=== PATIENT | male | born 1950 | race Caucasian/White ===

== ENCOUNTER 2021-10-02 08:49 | Outpatient (CLI) | payer MEDICARE, BC, SELFPAY ==
[2021-10-02 09:52] LABS: Anion Gap 5 mmol/L (8-16); Blood Urea Nitrogen 15 mg/dL (9-20); Calcium 9.2 mg/dL (8.4-10.2); Carbon Dioxide 27 mmol/L (22-30); Chloride 107 mmol/L (98-107); Estimated Glomerular Filt Rate > 60; Glucose 133 mg/dL (65-110); Potassium 3.6 mmol/L (3.4-5.0); Sodium 139 mmol/L (137-145)
== END 2021-10-02 08:50 | disposition home or self-care (01) ==
LOC: ANHSURGERY 08:53
PROVIDERS: Anesthesiology; PCP Family Medicine; Visit Provider Orthopaedic Surgery
DX: Z01.818 Encounter for other preprocedural examination (principal); E11.9 Type 2 diabetes mellitus without complications
CPT/HCPCS: 36415; 80048

== ENCOUNTER 2021-10-09 00:36 | Day surgery (SDC) | payer MEDICARE, BC, SELFPAY ==
--- NOTE | 2021-10-01 12:11 | PC.NURSE ---
Addendum entered by Oneida Long RN 10/01/21 13:48: ALSO TAKE METOPROLOL MORNING OF SURGERY Addendum entered by Oneida Long RN 10/01/21 12:21: SURGERY DATE IS 10/09/21 Addendum entered by Oneida Long RN 10/01/21 12:19: PLEASE ARRIVE AT [id number] SURGERY IS AT 0730 Original Note: Report to the Outpatient Waiting Room, entrance under the green pavilion located off [facility], at time on date . OR Time: . - You and your visitor will be asked a series of questions to screen for COVID 19 for your protection. - A mask is required within the hospital. Preoperative COVID Testing Requirements: No COVID Test needed if: (proof is required; if not received patient will have Rapid Test prior to entry) - Patient has received COVID Vaccine at least 14 days prior to procedure date or - Patient has positive COVID test result within last 90 days of surgery date. COVID Test needed if above criteria is not met If not COVID vaccinated a COVID test must be conducted within 72 hours of surgery and patient is asked to isolate self from time of testing until procedure. You will go to the [facility] Site for your COVID testing. The [facility] Testing site is located at the corner of [address] [facility]. You will only be called if COVID results are positive and your surgeon may reschedule your elective surgery date. Patients may have clear liquids (water, carbonated beverages, clear teas, apple juice) until 3 hours prior to surgery with a maximum of 20 ounces. - No food from midnight until time of surgery - Infants may have breast milk until 4 hours before surgery, formula 6 hours prior to surgery. - Children will be allowed to drink immediately following surgery. If applicable, please bring a bottle or sippy cup to assist with drinking. Juice, water, soda, and popsicles are readily available. For infants on formula, please bring formula the day of surgery. Pacifiers are allowed. Take the following medications with a SIP of water the morning of surgery: ___LEVOTHYROXINE,PREDNISOLONE Medications to discontinue per physician ___ALL VITAMINS AND SUPPLEMENTS 3 DAYS PREOP , PER DR LAINA COLLIER 2 DAYS PRE OP Date to take last dose__ALL VIT.10/05/21 AND XARELTO 10/06/21 Please no make-up, nail jordanian, hairspray, perfume, deodorant, or body powder the day of surgery. No jewelry (including any body piercings) or valuables the day of surgery, leave them at home. Please take a shower or bath the night before, or the morning of, surgery with an antibacterial soap. Wear comfortable, loose fitting clothing. Children are encouraged to wear pajamas. - Jewelry must be removed prior to entering the operating room. Rings and piercings that are not removed may be cut off. - The hospital will not accept responsibility for valuables. - Please leave all valuables, including medications, at home the day of surgery. If you are going home after surgery, a licensed cdl a driver must drive you home. - NO public transportation without another adult. - We recommend that an adult stay with you for 24 hours following discharge. - We also recommend that you do not drive, make important decision, drink alcoholic beverages, or take any drugs that were not prescribed by your health care provider for at least 24 hours after your discharge time. For Pediatric surgeries, we recommend two adults accompany the child home (only one inside the building at this time). One visitor will be allowed to accompany the patient into the hospital. Patients visitor will be instructed to remain with patient at all times or leave the building. We will allow the visitor to come back to the postoperative area when patient is ready. Follow any additional instructions given to you from your surgeon. Telephone instructions given to __PATIENT
[2021-10-01 12:23] VITALS: BMI 25.0
[2021-10-09] VITALS (8 sets, daily range): BP systolic 98–130; BP diastolic 59–75; PULSE 48–84; RESP 12–16; TEMP 36.2; O2SAT 95–100
[2021-10-09] MEDS: ACETAMINOPHEN 500 MG TABLET 1000 MG PO (06:22)
--- NOTE | 2021-10-09 06:41 | WPDANESEPPF ---
Anes - Initial Pre Proc Eval Procedure: Operation Date: 10/09/21 07:30 Proposed Procedures p Right Shoulder Arthroscopy with Possible Biceps Tenotomy - Chencho Bradley MD Date/Time: 10/09/21 06:41 Surgeon: Chencho Bradley MD Pre Op Diagnosis: right shoulder pain Patient Data Age: 71 Gender: M Height: 1.91 m Weight: 90.75 kg Last Vital Signs Temp 36.2 C L 10/09/21 06:28 Pulse 84 10/09/21 06:28 Resp 16 10/09/21 06:28 BP 130/75 10/09/21 06:28 Pulse Ox 97 10/09/21 06:28 Allergies Allergy/AdvReac Type Severity Reaction Status Date / Time adhesive tape AdvReac Mild Blister Verified 10/09/21 06:03 Home Medications Medication Instructions Recorded Confirmed Type acyclovir 200 mg PO BID 07/07/19 10/09/21 History azathioprine 50 mg PO QPM 07/07/19 10/09/21 History cholecalciferol (vitamin D3) 25 mcg PO DAILY 07/07/19 10/09/21 History cyanocobalamin (vitamin B-12) 500 mcg PO DAILY 07/07/19 10/09/21 History doxazosin 4 mg PO HS 07/07/19 10/09/21 History folic acid 0.8 mg PO QPM 07/07/19 10/09/21 History losartan 100 mg PO HS 07/07/19 10/09/21 History metformin 500 mg PO BID 07/07/19 10/09/21 History multivitamin 1 tablet PO DAILY 07/07/19 10/09/21 History prednisolone 5 mg PO DAILY 07/07/19 10/09/21 History rivaroxaban [Xarelto] 20 mg PO QPM 07/07/19 10/09/21 History vit B6-mag cit,oxid-potass cit 1 tablet PO QPM 07/07/19 10/09/21 History atorvastatin 40 mg PO HS 10/01/21 10/09/21 History dapagliflozin [Farxiga] 5 mg PO DAILY 10/01/21 10/09/21 History levothyroxine 150 mcg PO DAILY 10/01/21 10/09/21 History metoprolol succinate 200 mg PO QAM 10/01/21 10/09/21 History Patient hx anesthesia problems: post op nausea/vomiting Family hx anesthesia problems: none Results Review: All pre-operative results and documents have been reviewed as part of the pre-operative evaluation. [facility] [place] Past Medical History Medical History Arthritis of ankle, left, degenerative Atrial fibrillation HX CARDIAC ABLATION, DENIES CARDIAC SYMPTOMS Diabetes History of intraoperative complication of surgical procedure Aspiration HTN (hypertension) Hypercholesterolemia Hypothyroidism GEETHA (obstructive sleep apnea) NO CPAP Overweight (BMI 25.0-29.9) Surgical History Surgical History History of ankle surgery [address] Kaiser History of arthroscopy of left knee 2019, Dr. Kaiser History of eye surgery 2012 Dr. Espinosa History of prior ablation treatment 2017 Sr. Ramírez History of repair of left rotator cuff 2018 Dr. Kaiser Kidney transplant recipient Family History Family History Other Breast cancer Carcinoma of colon Diabetes mellitus History of throat cancer Hypertension Social History Social History Smoking packs per day: 1 Smoking cigarettes per day: 20.0 Years smoked: 3 Smoking pack-years: 3.00 Smoking status: Former smoker Tobacco type: cigarettes Smoking end date: 06/30/71 Alcohol intake: never Substance use: never Living arrangements: with family Gender identity (if verbalized by the patient): Male Spiritual care concerns: No Anes - Eval Final PreProcedure Day of Procedure 10/09/21 06:41 Patient weight: normal Heart: regular rate and rhythm Lungs: clear to auscultation Airway: Mallampati scale class II Neurological: alert and oriented Last oral intake: >/= 8 hours ASA classification: III Emergent: no Anesthetic plan: proceed Anesthesia type and monitoring: general ETT and standard monitoring Results Review: All pre-operative results and documents have been reviewed as part of the pre-operative evaluation. Informed Consent: The patient's anesthetic plan and its attendant risks and benefits were discussed with the patient/family/POA. Que
[2021-10-09 06:56] LABS: Glucose Point of Care 108 mg/dl (65-105)
[2021-10-09] MEDS: LACTATED RINGERS 1,000 ML 30 ML IV CONT ×2 (07:02→09:27)
--- NOTE | 2021-10-09 07:08 | ECG_ITS ---
Measurements Intervals [place] Rate: 58 P: 83 DE: 237 QRS: -31 QRSD: 95 T: 69 QT: 401 QTc: 395 Interpretive Statements SINUS BRADYCARDIA WITH FIRST DEGREE AV BLOCK LEFTWARD AXIS Electronically Signed On 10-09-2021 9:03:47 CDT by Chriss Gtz M.D.
--- NOTE | 2021-10-09 07:47 | WPDHPUPDATE1 ---
History and Physical Update Update Date/Time: 10/09/21 07:47 History and Physical has been reviewed, including an updated exam of the patient. There are NO changes in the patient's condition. Risks, benefits, and alternatives have been discussed and questions answered. Patient agrees to proceed with procedure. Plan for Right Shoulder Arthroscopy.
--- NOTE | 2021-10-09 07:48 | PM.IMHP ---
H&P: HPI History of Present Illness Date/Time: 10/09/21 07:48 Chief Complaint: Right shoulder pain PMFSH Past Medical History Medical History Arthritis of ankle, left, degenerative Atrial fibrillation HX CARDIAC ABLATION, DENIES CARDIAC SYMPTOMS Diabetes History of intraoperative complication of surgical procedure Aspiration HTN (hypertension) Hypercholesterolemia Hypothyroidism GEETHA (obstructive sleep apnea) NO CPAP Overweight (BMI 25.0-29.9) Surgical History Surgical History History of ankle surgery [address] Kaiser History of arthroscopy of left knee 2019, Dr. Kaiser History of eye surgery 2012 Dr. Espinosa History of prior ablation treatment 2017 Sr. Ramírez History of repair of left rotator cuff 2018 Dr. Kaiser Kidney transplant recipient Family History Family History Other Breast cancer Carcinoma of colon Diabetes mellitus History of throat cancer Hypertension Social History Social History Smoking packs per day: 1 Smoking cigarettes per day: 20.0 Years smoked: 3 Smoking pack-years: 3.00 Smoking status: Former smoker Tobacco type: cigarettes Smoking end date: 06/30/71 Alcohol intake: never Substance use: never Living arrangements: with family Gender identity (if verbalized by the patient): Male Spiritual care concerns: No Meds Home Medications and Allergies Home Medications Medication Instructions Recorded Confirmed Type acyclovir 200 mg PO BID 07/07/19 10/09/21 History azathioprine 50 mg PO QPM 07/07/19 10/09/21 History cholecalciferol (vitamin D3) 25 mcg PO DAILY 07/07/19 10/09/21 History cyanocobalamin (vitamin B-12) 500 mcg PO DAILY 07/07/19 10/09/21 History doxazosin 4 mg PO HS 07/07/19 10/09/21 History folic acid 0.8 mg PO QPM 07/07/19 10/09/21 History losartan 100 mg PO HS 07/07/19 10/09/21 History metformin 500 mg PO BID 07/07/19 10/09/21 History multivitamin 1 tablet PO DAILY 07/07/19 10/09/21 History prednisolone 5 mg PO DAILY 07/07/19 10/09/21 History rivaroxaban [Xarelto] 20 mg PO QPM 07/07/19 10/09/21 History vit B6-mag cit,oxid-potass cit 1 tablet PO QPM 07/07/19 10/09/21 History atorvastatin 40 mg PO HS 10/01/21 10/09/21 History dapagliflozin [Farxiga] 5 mg PO DAILY 10/01/21 10/09/21 History levothyroxine 150 mcg PO DAILY 10/01/21 10/09/21 History metoprolol succinate 200 mg PO QAM 10/01/21 10/09/21 History Allergies Allergy/AdvReac Type Severity Reaction Status Date / Time adhesive tape AdvReac Mild Blister Verified 10/09/21 06:03 Vital Signs Vital Signs - 24 hr 10/09/21 06:28 Temperature 36.2 C L Pulse Rate 84 Respiratory Rate 16 Blood Pressure 130/75 Pulse Oximetry 97 Exam HENMT: Head: normal to inspection Assessment and Plan Additional Plan Right shoulder pain, plan for arthroscopy
--- NOTE | 2021-10-09 07:52 | WPDANESPNB ---
Anes - Peripheral Nerve Block Date/Time: 10/09/21 07:52 I have discussed with the patient/family/POA the placement of a peripheral nerve block for post-operative pain management, including associated risks, benefits, complications, and side effects. Alternative methods of post-operative analgesia were detailed. Questions were solicited and answers provided to the satisfaction of the patient/family/POA. Time-Out: A pre-procedural Time-Out was completed immediately before starting the procedure and confirmed: Patient Identification, Site, Procedure, Patient Position and the Availability of Requisite Equipment. Clinical Indications: Acute post-operative pain management requested by the operative surgeon. Nerve Block Insertion Note Anes-nerve block: interscalene right Patient position: supine Skin prep: chlorhexidine Needle: 22 gauge, stimulating, insulated echogenic needle. Needle length: 50 mm Technique: ultrasound Injectate: bupivacaine 0.5% with epi 5 mcg/ml (30cc no epi) and dexamethasone (mg) (8) Observations: tolerated well Complications: none Procedure start time:: 744 Procedure end time:: 0
[2021-10-09] MEDS: ceFAZolin 2 GM/D5W 50 ML 2 GM/50 ML BAG IVPB (07:54)
[2021-10-09] MEDS: TRIAMCINOLONE ACET INJ 40 MG/ML VIAL 80 MG IM (09:04)
--- NOTE | 2021-10-09 09:48 | W.PM.PROC2 ---
Procedure Note - Detailed Date of Procedure 10/09/21 Pre-op Diagnosis right shoulder pain Post-op Diagnosis Same Procedure Performed Right Shoulder Subacromial Decompression Right Shoulder Subacromial Debridement Extensive with Bursectomy Surgeon Chencho Bradley MD Indications Right Shoulder Pain Findings Non Repairable Rotator Cuff with retraction of Supraspinatus and Infraspinatus to the glenoid rim Description of Procedure The patient was brought to the OR after regional block by anesthesia team. He was placed in the supine position and then underwent General anesthesia. The operative table was then positioned in the beach chair position with all bony prominences well padded. IV anti-biotics (Ancef) was administered within 1 hour of incision. Time-out was performed prior to incision. The Right shoulder was then preped and draped in the standard sterile fashion. Standard 3 arthroscopic portals were made. I first placed the camera into the glenohumeral joint space and noted a moderate degree of arthritis involving the postior aspect of the humeral head. No evidence of full thickness defects. No evidence of unstable cartilagenous flaps. The biceps tendon was not identified. The rotator cuff was obviously torn and retracted to the level of the Glenoid. I then placed the camera into the Subacromial space and noted a moderate degree of bursitis. I also noted a complete tear of the Rotator Cuff involving the Supra and Infra spinatus. The double row anchor was well positioned and intact. I made significant attempts to mobilize the retracted Rotator Cuff by debriding anterior superior to posterior and deep the the Rotator Cuff. Using a grasper to determine excursion of the Rotator Cuff, I assessed the Cuff to be retracted, minimally mobile and with very poor quality that was not amenable to repair. I then proceeded to perform a complete subacromial bursectomy with an arthroscopic shaver. I then performed a subacromial decompression removing 5 mm of an acromial spur being very careful to keep the AC Ligament intact. After this procedure, I injected into the Subacromial space, 80mg of Kenalog. The Shoulder was then bandaged in sterile fashion. The patient was then transferred to the recovery room in stable condition. Implants none Estimated Blood Loss -10.0 Complications None Condition Stable Disposition PACU
== END 2021-10-09 11:15 | disposition home or self-care (01) ==
PROVIDERS: PCP Family Medicine; Visit Provider Orthopaedic Surgery
PROC: (CPT 29805; principal; 2021-10-09 07:30)
DX: M75.101 Unspecified rotator cuff tear or rupture of right shoulder, not specified as traumatic (principal); M19.011 Primary osteoarthritis, right shoulder; M75.51 Bursitis of right shoulder; G89.18 Other acute postprocedural pain; Z79.84 Long term (current) use of oral hypoglycemic drugs; Z79.01 Long term (current) use of anticoagulants; E11.9 Type 2 diabetes mellitus without complications; I10 Essential (primary) hypertension; E78.00 Pure hypercholesterolemia, unspecified; E03.9 Hypothyroidism, unspecified; G47.33 Obstructive sleep apnea (adult) (pediatric); Z87.891 Personal history of nicotine dependence
CPT/HCPCS: 29823; 64415; 82948; 93005; A9270; J0690; J1100; J2001; J2250; J2370; J2405; J2704; J2710; J3010; J3301; J7120